=== PATIENT | male | born 1945 | race Caucasian/White ===

== ENCOUNTER 2017-02-24 06:30 | Inpatient (IN) | payer MEDICARE, OTHER ==
[~2017-02-24] VITALS: Ht 175.3 cm; Wt 89.0 kg
[~2017-02-24 06:30] MED LIST: ALLO300T PO; BACITRACIN 50,000 UNIT ONE; BUPIVACAINE/PF-EPI 0.5% 1:200K ONE; FENO43CA3 PO; METF10002 PO; THROMBIN 5,000 UNIT VIAL TP ONE
[2017-02-24] MEDS ORDERED: FENTANYL PF 250 MCG/5ML ONE (06:35)
[2017-02-24] MEDS ORDERED: MIDAZOLAM 1 MG/ML, 2ML ONE (06:36)
[2017-02-24] MEDS ORDERED: LACTATED RINGERS 1,000 ML IV SCH (07:41)
[2017-02-24 08:08] VITALS: BP 132/82
[2017-02-24] MEDS ORDERED: SUCCINYLCHOLINE 20 MG/ML, 10ML ONE (09:14)
[2017-02-24] MEDS ORDERED: PROPOFOL 10 MG/ML, 20ML ONE (09:14)
[2017-02-24] MEDS ORDERED: GLYCOPYRROLATE 0.2MG/1ML ONE (09:14)
[2017-02-24] MEDS ORDERED: ROCURONIUM 10 MG/ML ONE (09:14)
[2017-02-24] MEDS ORDERED: CEFAZOLIN 1,000 MG ONE (09:14)
[2017-02-24] MEDS ORDERED: NEOSTIGMINE 1 MG/ML, 10ML ONE (09:14)
[2017-02-24] MEDS ORDERED: ONDANSETRON 2MG/ML, 2ML ONE ×2 (09:14→12:07)
[2017-02-24] MEDS ORDERED: METOCLOPRAMIDE 5 MG/ML, 2ML IV PRN (10:00)
[2017-02-24] MEDS ORDERED: OXYcodone 5 MG/5 ML ORAL.SOL UDC PO PRN (10:00)
[2017-02-24] MEDS ORDERED: LABETALOL 5MG/ML, 20ML IV PRN (10:00)
[2017-02-24] MEDS ORDERED: ONDANSETRON 2MG/ML, 2ML IVPush PRN ×2 (10:00→11:30)
[2017-02-24] MEDS ORDERED: ACETAMINOPHEN 325 MG TABLET PO PRN (10:00)
[2017-02-24] MEDS ORDERED: HYDROmorphone 1 MG/ML, 1ML IV PRN (10:00)
[2017-02-24] MEDS ORDERED: hydrALAzine 20 MG/ML, 1ML IV PRN (10:00)
[2017-02-24] MEDS ORDERED: ALBUTEROL SULFATE 2.5 MG/3 ML ONE (11:26)
[2017-02-24] MEDS ORDERED: PROMETHAZINE 25 MG/ML, 1ML IM PRN (11:30)
[2017-02-24] MEDS ORDERED: HYDROmorphone PCA 30 MG/30 ML IV PRN (11:30)
[2017-02-24] MEDS ORDERED: MAGNESIUM HYDROXIDE 8%, 30ML UDC PO PRN (11:30)
[2017-02-24] MEDS ORDERED: HYDROmorphone 2MG TABLET PO PRN (11:30)
[2017-02-24] MEDS ORDERED: SENNA/DOCUSATE TABLET PO PRN (11:30)
[2017-02-24] MEDS ORDERED: HYDROcodone/APAP 10/325 MG TABLET PO PRN (11:30)
[2017-02-24] MEDS ORDERED: PHARMACY MAY ADJ FOR RENAL FX MC PRN (11:30)
[2017-02-24] MEDS ORDERED: DIPHENHYDRAMINE 50 MG CAPSULE PO PRN (11:30)
[2017-02-24] MEDS ORDERED: INSULIN REGULAR 100 UNITS/ML, 3ML VIAL SQ-INSULIN PRN (11:30)
[2017-02-24] MEDS ORDERED: BISACODYL 10 MG SUPP PR PRN (11:30)
[2017-02-24] MEDS ORDERED: FENTANYL PF 100 MCG/2ML ONE (11:41)
[2017-02-24] MEDS ORDERED: OXYcodone 5 MG/5 ML ORAL.SOL UDC ONE (11:42)
[2017-02-24] MEDS ORDERED: HYDROmorphone PCA 30 MG/30 ML ONE (11:42)
[2017-02-24] MEDS ORDERED: ALBUTEROL SULFATE 2.5 MG/3 ML NPPB PRN (12:00)
[2017-02-24] MEDS: FENTANYL PF 100 MCG/2ML IV PRN ×2 (12:01→12:10)
[2017-02-24 13:39] VITALS: BP 137/86
[2017-02-24 14:10] VITALS: BP 111/63
[2017-02-24] MEDS: CYCLOBENZAPRINE 10 MG TABLET PO PRN (15:49)
[2017-02-24] MEDS: NS + 20MEQ KCL 1,000 ML IV SCH (17:33)
[2017-02-24] MEDS: CEFAZOLIN PMX 1GM/50ML 50 ML IVPB SCH (17:33)
[2017-02-24] MEDS: HYDROcodone/APAP 5/325 TABLET PO PRN ×2 (17:33→21:37)
[2017-02-24] MEDS: FENOFIBRATE 54 MG TABLET PO SCH (21:36)
[2017-02-24] MEDS: metFORMIN XR 500 MG TAB.ER.24H PO SCH (21:36)
[2017-02-24] MEDS: SODIUM CHLORIDE FLUSH 10ML SYR IVF SCH (21:37)
[2017-02-24 21:47] VITALS: BP 127/67
[2017-02-25 00:29] VITALS: BP 118/72
[2017-02-25] MEDS: CEFAZOLIN PMX 1GM/50ML 50 ML IVPB SCH (01:14)
[2017-02-25 04:08] VITALS: BP 123/69
[2017-02-25] MEDS: NS + 20MEQ KCL 1,000 ML IV SCH ×2 (06:00→19:20)
[2017-02-25] MEDS: HYDROcodone/APAP 5/325 TABLET PO PRN ×4 (07:48→21:34)
[2017-02-25] MEDS: CYCLOBENZAPRINE 10 MG TABLET PO PRN ×2 (07:48→16:06)
[2017-02-25 07:51] VITALS: BP 121/83
[2017-02-25] MEDS ORDERED: FENOFIBRATE 54 MG TABLET PO SCH (09:00)
[2017-02-25] MEDS ORDERED: metFORMIN XR 500 MG TAB.ER.24H PO SCH (09:00)
[2017-02-25] MEDS: SODIUM CHLORIDE FLUSH 10ML SYR IVF SCH ×2 (09:40→21:00)
[2017-02-25] MEDS: FENOFIBRATE 54 MG TABLET PO SCH ×2 (09:40→21:30)
[2017-02-25 15:42] VITALS: BP 148/83
[2017-02-25] MEDS: metFORMIN XR 500 MG TAB.ER.24H PO SCH (21:30)
[2017-02-25 21:36] VITALS: BP 164/94
[2017-02-26] MEDS: CYCLOBENZAPRINE 10 MG TABLET PO PRN (00:44)
[2017-02-26 00:53] VITALS: BP 154/92
[2017-02-26] MEDS: HYDROcodone/APAP 5/325 TABLET PO PRN (05:02)
[2017-02-26 08:30] VITALS: BP 149/92
[2017-02-26] MEDS: NS + 20MEQ KCL 1,000 ML IV SCH (08:47)
[2017-02-26] MEDS: FENOFIBRATE 54 MG TABLET PO SCH (08:48)
[2017-02-26] MEDS ORDERED: HYDR-3240 PO (10:42)
[2017-02-26] MEDS ORDERED: CYCL5TAB PO (10:43)
== END 2017-02-26 11:00 | disposition home or self-care (01) | DRG 517 ==
LOC: OUT 06:30 → 4NOR 13:30 → OUT 22:29 → OBSVTOIN 02-25 10:18 → DCLOUNGE 02-26 10:28
PROVIDERS: ADMIT Neurological Surgery; ATTEND Neurological Surgery
PROC: 01NB0ZZ Release Lumbar Nerve, Open Approach (ICD-10-PCS; principal; 2017-02-24 09:30)
DX: M48.06 Spinal stenosis, lumbar region (principal); F17.210 Nicotine dependence, cigarettes, uncomplicated; G47.30 Sleep apnea, unspecified; E11.9 Type 2 diabetes mellitus without complications; M10.9 Gout, unspecified
CPT/HCPCS: 72100; 82962; 94640; G0378; J0690; J1170; J2250; J2405; J2704; J2710; J3010; J3480; J3490; J0330; J7120

== ENCOUNTER → 2017-10-19 | Outpatient (CLI) | payer MEDICARE, OTHER ==
[~2017-10-19] MED LIST changes: -BACITRACIN 50,000 UNIT ONE; -BUPIVACAINE/PF-EPI 0.5% 1:200K ONE; +CYCL5TAB PO; +GADOBUTROL 10 MMOL/10 ML PFS ONE; +HYDR-3240 PO; -THROMBIN 5,000 UNIT VIAL TP ONE
== END | disposition home or self-care (01) ==
LOC: CFH 14:39
PROVIDERS: ATTEND Nurse Practitioner Family
DX: M51.16 Intervertebral disc disorders with radiculopathy, lumbar region (principal); M48.07 Spinal stenosis, lumbosacral region; M41.86 Other forms of scoliosis, lumbar region; Z98.890 Other specified postprocedural states
CPT/HCPCS: 72110; 72158; 82565; A9585

== ENCOUNTER → 2017-10-26 | Outpatient (CLI) | payer MEDICARE, OTHER ==
[~2017-10-26] MED LIST changes: -GADOBUTROL 10 MMOL/10 ML PFS ONE
== END ==
LOC: CFH 15:23
PROVIDERS: ATTEND Nurse Practitioner Family
DX: M79.605 Pain in left leg (principal); R60.0 Localized edema

== ENCOUNTER → 2017-11-04 | Outpatient (CLI) | payer MEDICARE, OTHER ==
[~2017-11-04] MED LIST changes: +GABAPENTIN PO; +TRAMADOL PO
[2017-11-04 10:35] LABS: BASOPHILS # (AUTO) 0.08 x10^3/uL (0-0.1); BASOPHILS % (AUTO) 1 % (0-1); EOSINOPHILS # (AUTO) 0.33 x10^3/uL (0-0.4); EOSINOPHILS % (AUTO) 3 % (1-7); LYMPHOCYTES # (AUTO) 2.75 x10^3/uL (1-3.4); LYMPHOCYTES % (AUTO) 24 % (22-44); MD NO; MEAN CORPUSCULAR HEMOGLOBIN 31.3 pg (27.5-34.5); MEAN CORPUSCULAR HGB CONC 34.1 g/dL (33.2-36.2); MEAN CORPUSCULAR VOLUME 91.9 fL (81-97); MEAN PLATELET VOLUME 10.4 fL (7.4-10.4); MONOCYTES # (AUTO) 0.52 x10^3/uL (0.2-0.8); MONOCYTES % (AUTO) 5 % (2-9); NEUTROPHILS # (AUTO) 7.96 x10^3/uL (1.8-6.8); NEUTROPHILS % (AUTO) 68 % (42-75); PLATELET COUNT 239 x10^3/uL (130-400); RED BLOOD COUNT 4.66 x10^6/uL (4.38-5.82); RED CELL DISTRIBUTION WIDTH 13.2 % (9.4-14.8)
[2017-11-04 10:38] LABS: INTERNATIONAL NORMALIZED RATIO 1.02 (0.93-1.1); PROTHROMBIN TIME 10.5 Seconds (9.6-11.5)
[2017-11-04 10:40] LABS: ALANINE AMINOTRANSFERASE 24 U/L (12-78); ALBUMIN 3.5 g/dL (3.4-5.0); ANION GAP 7 mmol/L (5-15); CHLORIDE 106 mmol/L (98-107)
[2017-11-04 10:43] LABS: ALKALINE PHOSPHATASE 71 U/L (45-117); BILIRUBIN,TOTAL 0.4 mg/dL (0.2-1.0); CREATININE 1.02 mg/dL (0.7-1.3); TOTAL PROTEIN 7.6 g/dL (6.4-8.2)
== END | disposition home or self-care (01) ==
LOC: STAR 09:35
PROVIDERS: ATTEND Neurological Surgery
DX: Z01.818 Encounter for other preprocedural examination (principal); R94.31 Abnormal electrocardiogram [ECG] [EKG]; M54.16 Radiculopathy, lumbar region
CPT/HCPCS: 36415; 71046; 80053; 85025; 85610; 85730; 93005

== ENCOUNTER → 2017-11-04 | Outpatient (CLI) | payer MEDICARE, OTHER | END | disposition home or self-care (01) | LOC: CFH 08:37 | PROVIDERS: ATTEND Neurological Surgery | DX: M51.17 Intervertebral disc disorders with radiculopathy, lumbosacral region (principal); Z98.890 Other specified postprocedural states | CPT/HCPCS: 72131 ==

== ENCOUNTER 2017-11-15 06:00 | Day surgery (SDC) | payer MEDICARE, OTHER ==
[~2017-11-15] VITALS: Ht 175.3 cm; Wt 94.0 kg
[2017-11-15] MEDS ORDERED: BACITRACIN OINT 500U/GM, 15 GM ONE (07:05)
[2017-11-15] MEDS ORDERED: THROMBIN 5,000 UNIT VIAL TP ONE (07:05)
[2017-11-15] MEDS ORDERED: BUPIVACAINE/PF 0.5% ONE (07:05)
[2017-11-15] MEDS ORDERED: BACITRACIN 50,000 UNIT ONE (07:05)
[2017-11-15] MEDS ORDERED: EPINEPHRINE 1 MG/ML, 1ML ONE (07:05)
[2017-11-15] MEDS ORDERED: LACTATED RINGERS 1,000 ML IV SCH (07:16)
[2017-11-15 07:38] VITALS: BP 132/87
[2017-11-15] MEDS ORDERED: KETAMINE 10 MG/ML, 20ML ONE ×2 (07:54→08:56)
[2017-11-15] MEDS ORDERED: FENTANYL PF 250 MCG/5ML ONE (07:56)
[2017-11-15] MEDS ORDERED: MIDAZOLAM 1 MG/ML, 2ML ONE (07:59)
[2017-11-15] MEDS ORDERED: FAMOTIDINE 20 MG TABLET ONE (08:24)
[2017-11-15] MEDS ORDERED: GABAPENTIN 300 MG CAPSULE ONE (08:24)
[2017-11-15] MEDS ORDERED: TAMSULOSIN 0.4 MG CAP.ER.24H ONE (08:25)
[2017-11-15] MEDS ORDERED: ACETAMINOPHEN 500 MG TABLET ONE (08:25)
[2017-11-15] MEDS ORDERED: GABAPENTIN 300 MG CAPSULE PO STA (08:29)
[2017-11-15] MEDS ORDERED: TAMSULOSIN 0.4 MG CAP.ER.24H PO STA (08:29)
[2017-11-15] MEDS ORDERED: ACETAMINOPHEN 500 MG TABLET PO STA (08:29)
[2017-11-15] MEDS ORDERED: FAMOTIDINE 20 MG TABLET PO STA (08:29)
[2017-11-15] MEDS ORDERED: LIDOCAINE 2% 100MG/5ML SYRINGE ONE (08:56)
[2017-11-15] MEDS ORDERED: PHENYLEPHRINE 10 MG/ML ONE (08:56)
[2017-11-15] MEDS ORDERED: SUCCINYLCHOLINE 20 MG/ML, 10ML ONE (08:56)
[2017-11-15] MEDS ORDERED: PROPOFOL 10 MG/ML, 20ML ONE (08:56)
[2017-11-15] MEDS ORDERED: GLYCOPYRROLATE 0.2MG/1ML, 5ML ONE (08:56)
[2017-11-15] MEDS ORDERED: CEFAZOLIN 1,000 MG ONE (08:56)
[2017-11-15] MEDS ORDERED: ONDANSETRON 2MG/ML, 2ML ONE (08:56)
[2017-11-15] MEDS ORDERED: ROCURONIUM 10MG/ML,5ML ONE (08:56)
[2017-11-15] MEDS ORDERED: EPHEDRINE 50 MG/ML, 1ML ONE (08:56)
[2017-11-15] MEDS ORDERED: NEOSTIGMINE 1 MG/ML, 10ML ONE (08:56)
[2017-11-15] MEDS ORDERED: DEXAMETHASONE 4 MG/ML, 1ML ONE (08:56)
[2017-11-15] MEDS ORDERED: methylPREDNISolone *ACETATE* 40 MG/ML ONE (10:48)
[2017-11-15] MEDS ORDERED: DIAZEPAM 5 MG/ML, 2ML IVPush PRN (11:30)
[2017-11-15] MEDS ORDERED: PROMETHAZINE 25 MG/ML, 1ML IV PRN (11:30)
[2017-11-15] MEDS ORDERED: OXYcodone 5 MG/5 ML ORAL.SOL UDC PO PRN (11:30)
[2017-11-15] MEDS ORDERED: morphine SULFATE 10 MG/ML, 1ML IV PRN (11:30)
[2017-11-15] MEDS ORDERED: KETOROLAC 30 MG/1 ML IV PRN (11:30)
[2017-11-15] MEDS ORDERED: FENTANYL PF 100 MCG/2ML IV PRN (11:30)
[2017-11-15] MEDS ORDERED: OXYcodone 5 MG/5 ML ORAL.SOL UDC ONE (11:42)
== END 2017-11-15 14:45 ==
LOC: OUT 06:00
PROVIDERS: ATTEND Neurological Surgery
DX: M54.16 Radiculopathy, lumbar region (principal); M10.9 Gout, unspecified; M48.061 Spinal stenosis, lumbar region without neurogenic claudication; E11.9 Type 2 diabetes mellitus without complications; F17.200 Nicotine dependence, unspecified, uncomplicated; Z82.61 Family history of arthritis; Z82.49 Family history of ischemic heart disease and other diseases of the circulatory system
CPT/HCPCS: 36415; 63030; 72100; 82962; 86850; 86900; J0171; J0330; J0690; J1030; J1100; J2250; J2370; J2405; J2704; J2710; J3010; J3490; J7120

== ENCOUNTER → 2018-02-08 | Outpatient (CLI) | payer MEDICARE, OTHER | END | disposition home or self-care (01) | LOC: CFH 10:03 | PROVIDERS: ATTEND Neurological Surgery | DX: M51.16 Intervertebral disc disorders with radiculopathy, lumbar region (principal); Z98.890 Other specified postprocedural states | CPT/HCPCS: 72131 ==

== ENCOUNTER 2020-01-16 06:42 | Day surgery (SDC) | payer MEDICARE, OTHER ==
[~2020-01-16] VITALS: Ht 175.3 cm; Wt 84.0 kg
[~2020-01-16 06:42] MED LIST changes: +ALLO100T30 PO; +CELE100C PO; +FENO150C4 PO; -FENO43CA3 PO; +FENO43CA6 PO; +GLIP2.5T3 PO; +GLIP5TAB10 PO; +IBUP-1623 PO; +IPRA15SP NAS; +LISI-167 PO; +METO25TA35 PO; +ROSU10TA2 PO; +[UNRECOGNIZED DRUG - OTHER] PO
[2020-01-16] MEDS ORDERED: LACTATED RINGERS 1,000 ML IV SCH (07:34)
[2020-01-16 07:38] VITALS: BP 118/75
[2020-01-16] MEDS ORDERED: LIDOCAINE-MPF 1%, 2ML INFIL ONE (08:00)
[2020-01-16] MEDS ORDERED: CHLORHEXIDINE 15 ML UDC MM ONE (08:00)
[2020-01-16] MEDS ORDERED: FENTANYL PF 100 MCG/2ML ONE (08:33)
[2020-01-16] MEDS ORDERED: PROPOFOL 50 ML ONE (08:33)
[2020-01-16] MEDS ORDERED: ONDANSETRON 2MG/ML, 2ML ONE ×2 (08:34→08:50)
[2020-01-16] MEDS ORDERED: ROCURONIUM 10MG/ML,5ML ONE (08:34)
[2020-01-16] MEDS ORDERED: PROPOFOL 10 MG/ML, 20ML ONE (08:34)
[2020-01-16] MEDS ORDERED: SUCCINYLCHOLINE 20 MG/ML, 10ML ONE (08:50)
[2020-01-16] MEDS ORDERED: CEFAZOLIN 1,000 MG ONE (08:50)
[2020-01-16] MEDS ORDERED: DIAZEPAM 5 MG/ML, 2ML IVPush PRN (09:30)
[2020-01-16] MEDS ORDERED: EPHEDRINE 50 MG/ML, 1ML IM PRN (09:30)
[2020-01-16] MEDS ORDERED: ONDANSETRON 2MG/ML, 2ML IV PRN (09:30)
[2020-01-16] MEDS ORDERED: METOPROLOL 1 MG/ML, 5ML IV PRN (09:30)
[2020-01-16] MEDS ORDERED: PROMETHAZINE 25 MG/ML, 1ML IV PRN (09:30)
[2020-01-16] MEDS ORDERED: FENTANYL PF 100 MCG/2ML IV PRN (09:30)
[2020-01-16] MEDS ORDERED: OXYcodone 5 MG/5 ML ORAL.SOL UDC PO PRN (09:30)
[2020-01-16] MEDS ORDERED: ONDANSETRON ODT 8 MG PO PRN (09:30)
[2020-01-16] MEDS ORDERED: EPHEDRINE 50 MG/ML, 1ML IVPush PRN (09:30)
== END 2020-01-16 11:05 | disposition home or self-care (01) ==
LOC: OUT 06:42
PROVIDERS: ATTEND Internal Medicine
DX: K86.2 Cyst of pancreas (principal); E27.8 Other specified disorders of adrenal gland; E11.9 Type 2 diabetes mellitus without complications; I10 Essential (primary) hypertension; G47.33 Obstructive sleep apnea (adult) (pediatric); F17.200 Nicotine dependence, unspecified, uncomplicated; Z72.89 Other problems related to lifestyle; Z95.0 Presence of cardiac pacemaker
CPT/HCPCS: 43242; 82150; 82378; 82962; 88173; 93005; J0330; J0690; J2405; J2704; J3010; J7120